=== PATIENT | male | born 1970 | race Two or more races ===

== ENCOUNTER 2021-05-14 09:22 | Inpatient (IN) | payer BC, OTHER ==
[~2021-05-14] VITALS: Ht 175.3 cm; Wt 46.0 kg
[2021-05-14] VITALS (14 sets, daily range): BP systolic 76–173; BP diastolic 47–103
[2021-05-14 12:46] LABS: Hematocrit 53.7 % (41.0-53.0); Hemoglobin 17.4 g/dL (13.5-17.5); Mean Corpuscular Hemoglobin 28.8 pg (28.0-32.0); Mean Corpuscular Hgb Conc. 32.4 g/dL (32.0-36.0); Red Blood Cells 6.04 10^6/uL (4.5-5.90); Red Cell Distribution Width 17.3 % (11.8-14.3)
[2021-05-14 12:48] LABS: Basophils % (manual) 0 (0.0-2.0); Blast Cells 0; Eosinophils % (manual) 0 (0-7); Metamyelocytes % 0; Myelocytes % 0; Promyelocytes % 0
[2021-05-14 13:02] LABS: Potassium 3.6 mmol/L (3.5-5.1)
[2021-05-14 13:14] LABS: Albumin 2.5 g/dL (3.4-5.0); BUN/Creatinine Ratio 16.4; Calcium 9.2 mg/dL (8.5-10.1); Total Protein 6.4 g/dL (6.4-8.2)
[2021-05-14] MEDS ORDERED: SUCCINYLCHOLINE CHLORIDE 20 MG/ML 10ML VIAL IV ONE ×2 (13:24→13:45)
[2021-05-14] MEDS ORDERED: ETOMIDATE (2MG/ML) 20ML VIAL IV ONE ×2 (13:24→13:45)
[2021-05-14] MEDS ORDERED: MIDAZOLAM DRIP 50 mg/50mL 50 ML IV ONE (13:33)
[2021-05-14] MEDS: MIDAZOLAM DRIP 50 mg/50mL 50 ML IV SCH (13:55)
[2021-05-14] MEDS ORDERED: NOREPINEPHRINE 8 MG/250ML KIT 250 ML IV ONE (14:25)
[2021-05-14] MEDS ORDERED: SODIUM CHLORIDE 0.9% 2,000 ML IV ONE (14:30)
[2021-05-14 14:37] LABS: Band Neutrophils % (manual) 4; Lymphocytes % (manual) 65 (10.0-50.0); Monocytes % (manual) 15 (0-12); Reactive Lymphocytes 11
[2021-05-14] MEDS: NOREPINEPHRINE 8 MG/250ML KIT 250 ML IV SCH ×2 (14:54→23:25)
[2021-05-14] MEDS: VASOPRESSIN 50 UNITS in D5W 5% 247.5 ML IV SCH (16:41)
[2021-05-14] MEDS ORDERED: NITROGLYCERIN 0.4 MG SL TAB SL PRN (17:15)
[2021-05-14] MEDS ORDERED: MORPHINE SULFATE INJECTION 2 MG/ML SYRG IV PRN (17:15)
[2021-05-14] MEDS: PHENYLEPHRINE IV 250 ML IV SCH ×2 (18:52→23:24)
[2021-05-14] MEDS ORDERED: SODIUM CHLORIDE 0.9% 500 ML IV ONE (19:15)
[2021-05-14] MEDS ORDERED: ALBUMIN 25% 100 ML IV ONE (19:15)
[2021-05-14] MEDS ORDERED: ACETAMINOPHEN 325 MG TAB PO ONE (20:45)
[2021-05-15] VITALS (18 sets, daily range): BP systolic 0–187; BP diastolic 0–154
[2021-05-15] MEDS ORDERED: VASOPRESSIN 20 UNIT/ML ONE ×2 (00:25→00:31)
[2021-05-15] MEDS: MIDAZOLAM DRIP 50 mg/50mL 50 ML IV SCH ×2 (01:44→04:17)
[2021-05-15] MEDS: PHENYLEPHRINE IV 250 ML IV SCH ×2 (01:45→04:19)
[2021-05-15] MEDS: VASOPRESSIN 50 UNITS in D5W 5% 247.5 ML IV SCH (04:18)
[2021-05-15] MEDS: NOREPINEPHRINE 8 MG/250ML KIT 250 ML IV SCH (04:20)
[2021-05-15] MEDS ORDERED: DEXTROSE 10% 1,000 ML IV ONE (09:31)
[2021-05-15] MEDS ORDERED: DEXTROSE 10% 1,000 ML IV SCH (09:45)
[2021-05-15 11:04] LABS: INR 7.11 (0.9-1.15)
[2021-05-15 11:08] LABS: Mean Corpuscular Hemoglobin 29.5 pg (28.0-32.0); Mean Corpuscular Hgb Conc. 31.7 g/dL (32.0-36.0)
[2021-05-15 11:10] LABS: Hematocrit 38.9 % (41.0-53.0); Hemoglobin 12.4 g/dL (13.5-17.5); Mean Corpuscular Volume 93.1 fL (80.0-100.0); Red Blood Cells 4.18 10^6/uL (4.5-5.90); Red Cell Distribution Width 17.8 % (11.8-14.3); White Blood Cell 6.3 10^3/uL (4.4-10.8)
[2021-05-15 11:12] LABS: Basophils % (manual) 0 (0.0-2.0); Blast Cells 0; Metamyelocytes % 0; Myelocytes % 0; Promyelocytes % 0; Reactive Lymphocytes 0
[2021-05-15 11:21] LABS: Albumin 1.5 g/dL (3.4-5.0); Calcium 6.1 mg/dL (8.5-10.1); Magnesium 3.7 mg/dL (1.6-2.6)
[2021-05-15] MEDS ORDERED: MORPHINE SULFATE INJECTION 2 MG/ML SYRG IV ONE (11:30)
[2021-05-15 11:44] LABS: Band Neutrophils % (manual) 1; Eosinophils % (manual) 1 (0-7); Lymphocytes % (manual) 59 (10.0-50.0); Monocytes % (manual) 32 (0-12)
[2021-05-15 11:59] LABS: BUN/Creatinine Ratio 18.9; Bilirubin, Total 1.1 mg/dL (0.2-1.0); Total Protein 3.8 g/dL (6.4-8.2)
[2021-05-15 12:14] LABS: Phosphorus 15.3 mg/dL (2.5-4.90)
[2021-05-15] MEDS ORDERED: FLUMAZENIL 0.1 MG/ML INJ 10ML MDV IV ONE (18:49)
[2021-05-15] MEDS ORDERED: DEXTROSE (50%) 50ML SYRG IV ONE (18:49)
[2021-05-15] MEDS ORDERED: SODIUM BICARBONATE 8.4% INJ 50ML SYRINGE IV ONE (18:49)
[2021-05-15] MEDS ORDERED: EPINEPHrine HCL 1 MG/10 ML SYRG IV ONE (18:49)
== END 2021-05-15 12:23 | DRG 871 ==
LOC: EDBD 09:22 → ER 09:22 → TELE 17:09
PROVIDERS: ADMIT Hospitalist; ATTEND Internal Medicine
PROC: 5A1935Z Respiratory Ventilation, Less than 24 Consecutive Hours (ICD-10-PCS; principal; 2021-05-14)
PROC: 0BH17EZ Insertion of Endotracheal Airway into Trachea, Via Natural or Artificial Opening (ICD-10-PCS; 2021-05-14)
PROC: 06HY33Z Insertion of Infusion Device into Lower Vein, Percutaneous Approach (ICD-10-PCS; 2021-05-14)
PROC: 5A12012 Performance of Cardiac Output, Single, Manual (ICD-10-PCS; 2021-05-14)
DX: A41.9 Sepsis, unspecified organism (principal); G93.41 Metabolic encephalopathy; R65.21 Severe sepsis with septic shock; J96.01 Acute respiratory failure with hypoxia; R57.0 Cardiogenic shock; Z20.822 Contact with and (suspected) exposure to COVID-19; Z85.038 Personal history of other malignant neoplasm of large intestine; Z85.05 Personal history of malignant neoplasm of liver
CPT/HCPCS: 31500; 36415; 36556; 36600; 71045; 80053; 82805; 82962; 83735; 83880; 84100; 84484; 85007; 85027; 85379; 85610; 85730; 87070; 87205; 93005; 94002; 94003; 96360; 99291; G0378; J0330; J2250; J7060; P9047